=== PATIENT | female | born 1940 | race Caucasian/White ===

== ENCOUNTER → 2019-11-17 | Outpatient (CLI) | payer MEDICARE, OTHER ==
[~2019-11-17] MED LIST: DOBUTamine DRIP for NUC MED 500 MG in DEXTROSE/WATER 1 250ML.BAG IV ONE
--- NOTE | 2019-11-17 14:17 | ECHOS ---
STRESS ECHOCARDIOGRAM LUMASON VIAL: INDICATIONS: Abnormal ECG. MEDICATIONS: Insulin BASELINE HEART RATE: 89 BASELINE BLOOD PRESSURE: 140/64 MAXIMUM HEART RATE: 133 MAXIMUM BLOOD PRESSURE: 139/58 85% MPHR: 122 100% MPHR: 143 METS: MAXIMUM STAGE REACHED: TOTAL EXERCISE TIME: CLINICAL INFORMATION: Baseline EKG shows sinus rhythm with nonspecific ST-T wave changes. Patient was given intravenous dobutamine over a period of 6 minutes as per protocol, achieving 85% of predicted maximal heart rate without chest pain or diagnostic ST-segment depression. Baseline echo shows normal left ventricular size wall motion and systolic function. Post dobutamine infusion, there is normal hyperdynamic response of myocardium noted. CONCLUSION: 1. Inconclusive EKG part of the stress test due to baseline EKG abnormalities. 2. There was worsening of the EKG changes with dobutamine infusion. 3. Negative dobutamine stress echo. CLARITZA / VIVIANAN: [id number] /
--- NOTE | 2019-11-17 18:31 | ECHOF ---
Referral Reason:R94.31 Abnormal Ekg MEASUREMENTS -------- HEIGHT: 167.6 cm WEIGHT: 81.2 kg BP: RVIDd: 3.3 cm (< 3.3) IVSd: 1.3 cm (0.6 - 1.1) LVIDd: 3.7 cm (3.9 - 5.3) LVPWd: 1.2 cm (0.6 - 1.1) IVSs: 1.7 cm LVIDs: 2.7 cm LVPWs: 1.9 cm LA Diam: 3.2 cm (2.7 - 3.8) LAESV Index (A-L): 23.06 ml/m Ao Diam: 3.2 cm (2.0 - 3.7) AV Cusp: 1.4 cm (1.5 - 2.6) MV EXCURSION: 17.701 mm (> 18.000) MV EF SLOPE: 34 mm/s (70 - 150) EPSS: 0.5 cm MV E Wilian: 0.60 m/s MV DecT: 366 ms MV A Wilian: 0.93 m/s MV E/A Ratio: 0.65 AV maxP.28 mmHg AV maxP.28 mmHg AV meanP.46 mmHg RAP: 5.00 mmHg RVSP: 37.19 mmHg FINDINGS -------- Sinus rhythm. This was a technically adequate study. The left ventricular size is normal. There is mild concentric left ventricular hypertrophy. Overa ll left ventricular systolic function is normal with, an EF between 60 - 65 %. The right ventricle is mildly enlarged. Normal LA size by volume 22+/-6 ml/m2. The right atrium is normal in size. Interatrial and interventricular septum intact. There is mild aortic valve sclerosis. There is mild aortic stenosis present. Peak/mean gradient a cross the Aortic Valve is 20.28mmHg / 9.46mmHg. Functionally bicuspid aortic valve. Mild mitral annular calcification present. Mild tricuspid regurgitation present. There is mild pulmonary hypertension. The right ventricular systolic pressure, as measured by Doppler, is 37.19mmHg. Trace/mild (physiologic) pulmonic regurgitation. The aortic root size is normal. Normal inferior vena cava with normal inspiratory collapse consistent with estimated right atrial pre ssure of 5 mmHg. There is no pericardial effusion. CONCLUSIONS -------- 1. The left ventricular size is normal. 2. There is mild concentric left ventricular hypertrophy. 3. Overall left ventricular systolic function is normal with, an EF between 60 - 65 %. 4. The right ventricle is mildly enlarged. 5. Normal LA size by volume 22+/-6 ml/m2. 6. There is mild aortic valve sclerosis. 7. There is mild aortic stenosis present. 8. Peak/mean gradient across the Aortic Valve is 20.28mmHg / 9.46mmHg. 9. Functionally bicuspid aortic valve. 10. Mild mitral annular calcification present. 11. Mild tricuspid regurgitation present. 12. There is mild pulmonary hypertension. 13. The right ventricular systolic pressure, as measured by Doppler, is 37.19mmHg. 14. Trace/mild (physiologic) pulmonic regurgitation. 15. There is no pericardial effusion. OPTICAL INSTRUMENT SPECIALIST: Mariana Fernandes RDCS
== END | disposition home or self-care (01) ==
LOC: RADNMMAIN 08:46
PROVIDERS: ATTEND Family Medicine
DX: Q23.1 Congenital insufficiency of aortic valve (principal); I27.20 Pulmonary hypertension, unspecified; I07.1 Rheumatic tricuspid insufficiency; R94.31 Abnormal electrocardiogram [ECG] [EKG]
CPT/HCPCS: 93306; 93351; J1250